=== PATIENT | female | born 1985 | race Caucasian/White ===

== ENCOUNTER → 2016-06-27 | Emergency (ER) | payer OTHER ==
[~2016-06-27] MED LIST: LIDOCAINE VISCOUS 2% ORAL/TOP 100 ML BOTTLE MM ONE; MAG HYDROX/AL HYDROX/SIMETH 30 ML UNIT-DOSE CUP ONE; MAG HYDROX/AL HYDROX/SIMETH 30 ML UNIT-DOSE CUP PO ONE
[2016-06-27 18:42] VITALS: BP 133/89; PULSE 98; TEMP 97.7; BMI 33.6
--- NOTE | 2016-06-27 19:25 | PDOC ---
History of Present Illness - General Chief Complaint: Pain, Acute Stated Complaint: ABD PAIN/BACK PAIN Time Seen by Provider: 06/27/16 18:58 History Source: Patient Exam Limitations: No Limitations - History of Present Illness Travel History: No Timing/Duration: reports: intermittent Quality: reports: mild Abdominal Pain Onset Location: reports: RUQ, epigastric Pain Radiation: reports: no radiation Alleviating Factors: improves with: Rest Past History - Travel Traveled outside of the country in the last 30 days: No Close contact w/someone who was outside of country & ill: No - Past Medical History Allergies/Adverse Reactions: Allergies Allergy/AdvReac Type Severity Reaction Status Date / Time No Known Allergies Allergy Verified 06/27/16 18:39 Home Medications: Ambulatory Orders NK [No Known Home Medication] 06/27/16 Other medical history: DENIES. - Psycho/Social/Smoking Cessation Hx Anxiety: No Suicidal Ideation: No Smoking Status: No Smoking History: Never smoked Have you smoked in the past 12 months: No Number of Cigarettes Smoked Daily: 0 Hx Alcohol Use: No Substance Use Type: None Abd/GI Specific PMHX - Complaint Specific PMHX Colitis: No Diverticulitis: No Gall Bladder Disease: No GERD: No Review of Systems - Review of Systems Able to Perform ROS?: Yes Comments:: 06/27/16 19:43 CONSTITUTIONAL: Absent: fever, chills, diaphoresis, generalized weakness, malaise, loss of appetite HEENT: Absent: rhinorrhea, nasal congestion, throat pain, throat swelling, difficulty swallowing, mouth swelling, ear pain, eye pain, visual Changes CARDIOVASCULAR: Absent: chest pain, loss of consciousness, palpitations, irregular heart rate, peripheral edema RESPIRATORY: Absent: cough, shortness of breath, dyspnea with exertion, orthopnea, wheezing, stridor, hemoptysis GASTROINTESTINAL: +RUQ pain/epigastric Absent: abdominal distension, nausea, vomiting, diarrhea, constipation, melena, hematochezia GENITOURINARY: Absent: dysuria, frequency, urgency, hesitancy, hematuria, flank pain, genital pain MUSCULOSKELETAL: Absent: myalgia, arthralgia, joint swelling SKIN: Absent: rash, itching, pallor HEMATOLOGIC/IMMUNOLOGIC: Absent: easy bleeding, easy bruising, lymphadenopathy, frequent infections ENDOCRINE: Absent: unexplained weight gain, unexplained weight loss, heat intolerance, cold intolerance NEUROLOGIC: Absent: headache, focal weakness or paresthesias, dizziness, unsteady gait, seizure, mental status changes, bladder or bowel incontinence PSYCHIATRIC: Absent: anxiety, depression, suicidal or homicidal ideation, hallucinations. Is the patient limited Cook Islander proficient: No *Physical Exam - Vital Signs Last Vital Signs Temp Pulse Resp BP Pulse Ox 97.7 F 98 H 19 133/89 100 06/27/16 18:40 06/27/16 18:40 06/27/16 18:40 06/27/16 18:40 06/27/16 18:40 - Physical Exam Comments: 06/27/16 19:43 GENERAL: Well developed, well nourished. Awake and alert. No acute distress. HEENT: Normocephalic, atraumatic. PERRLA, EOMI. No conjunctival pallor. Sclera are non- icteric. Moist mucous membranes. Oropharynx is clear. NECK: Supple. Full ROM. No JVD. Carotid pulses 2+ and symmetric, without bruits. No thyromegaly. No lymphadenopathy. CARDIOVASCULAR: Regular rate and rhythm. No murmurs, rubs, or gallops. Distal pulses are 2+ and symmetric. PULMONARY: No evidence of respiratory distress. Lungs clear to auscultation bilaterally. No wheezing, rales or rhonchi. ABDOMINAL: +RUQ/epigastric pain Soft. Non-distended. No rebound or guarding. No organomegaly. Normoactive bowel sounds. MUSCULOSKELETAL Normal range of motion at all joints. No bony deformities or tenderness. No CVA tenderness. EXTREMITIES: No cyanosis. No clubbing. No edema. No calf tenderness. SKIN: Warm and dry. Normal capillary refill. No rashes. No jaundice. NEUROLOGICAL: Alert, awake, appropriate. Cranial nerves 2-12 intact. No deficits to light touch and temperature in face, upper extremities and lower extremities. No motor deficits in the in face, upper extremities and lower extremities. Normoreflexic in the upper and lower extremities. Normal speech. Toes are down- going bilaterally. Gait is normal without ataxia. PSYCHIATRIC: Cooperative. Good eye contact. Appropriate mood and affect. ED Treatment Course - LABORATORY CBC & Chemistry Diagram: 06/27/16 19:35 06/27/16 21:22 Progress Note - Progress Note Progress Note: 31-year-old female presents to the emergency department with her fianc complaining of right upper quadrant greater than epigastric pain since yesterday. Pain is described as 5/10 dull nonradiating intermittent discomfort. Pain is associated with some nausea but no vomiting. Pain is exacerbated on touch and alleviated at rest. Patient denies any fever/chills, chest pain, shortness of breath, urinary symptoms: Frequency/urgency/hesitancy, hematuria. No history of similar symptoms. EKG NSR at 90; no st elevation 2238hrs; Pain free *DC/Admit/Observation/Transfer Diagnosis at time of Disposition: Abdominal pain Qualifiers: Abdominal location: epigastric Qualified Code(s): R10.13 - Epigastric pain - Discharge Dispostion Disposition: HOME Condition at time of disposition: Fair
[2016-06-27 20:06] LABS: BASOPHIL 0.5 % (0-2.0); EOSINOPHIL 1.7 % (0-4.5); MCHC 33.9 g/dl (32.0-36.0); MEAN CELL VOLUME 85.4 fl (80-96); MEAN PLT VOLUME 10.3 fl (7.5-11.1); NEUTROPHILS 56.8 % (42.8-82.8); PLATELET COUNT 283 K/MM3 (134-434); RDW 13.7 % (11.6-15.6); URINE APPEARANCE CLEAR; URINE BILIRUBIN NEGATIVE (NEGATIVE); URINE BLOOD NEGATIVE (NEGATIVE); URINE COLOR LTYELLOW; URINE GLUCOSE (UA) NEGATIVE (NEGATIVE); URINE KETONE NEGATIVE (NEGATIVE); URINE LEUK ESTERASE NEGATIVE (NEGATIVE); URINE NITRITE NEGATIVE (NEGATIVE); URINE PROTEIN NEGATIVE (NEGATIVE); URINE UROBILINOGEN NEGATIVE E.U./dl (0.2-1.0)
[2016-06-27 22:20] LABS: ALBUMIN 3.6 g/dl (3.4-5.0); ALK PHOS 74 U/L (45-117); ANION GAP 10 (8-16); BILIRUBIN,TOTAL 0.4 mg/dL (0.2-1.0); CO2 25 mmol/L (21-32); CREATININE 0.7 mg/dL (0.55-1.02); GLUCOSE,RANDOM 89 mg/dL (74-106); SGOT/AST 16 U/L (15-37); SGPT/ALT 23 U/L (12-78); TOT PROT 7.1 g/dl (6.4-8.2)
[2016-06-27 22:57] LABS: AMYLASE 42 U/L (25-115)
--- NOTE | 2016-06-28 17:48 | EKG ---
Test Reason : Blood Pressure : / mmHG Vent. Rate : 090 BPM Atrial Rate : 090 BPM P-R Int : 160 ms QRS Dur : 078 ms QT Int : 358 ms P-R-T Axes : 017 017 016 degrees QTc Int : 437 ms NORMAL SINUS RHYTHM NORMAL ECG NO PREVIOUS ECGS AVAILABLE Confirmed by KRYSTA LIVINGSTON MD ([id number]) on 06/28/2016 5:47:40 PM Referred By: Confirmed By:KRYSTA LIVINGSTON MD
== END | disposition home or self-care (01) ==
LOC: JER 18:26
DX: R10.13 Epigastric pain (principal)
CPT/HCPCS: 36415; 76705-TC; 80053; 81003; 82150; 83690; 84703; 85025; 93005; 93010; 99283-25

== ENCOUNTER 2016-12-01 07:04 | Emergency (ER) | payer OTHER ==
[2016-12-01 07:13] VITALS: BMI 35.5
--- NOTE | 2016-12-01 07:33 | PDOC ---
History of Present Illness - General History Source: Patient Exam Limitations: No Limitations - History of Present Illness Initial Comments: CHIEF COMPLAINT: 31 y/o afebrile female, , approximately 19 weeks female with LMP of 07/21/16 c/o vaginal bleeding this morning. HISTORY OF PRESENT ILLNESS: The patient states yesterday she had back cramping and this morning had pinkish vaginal bleeding with the passage of 1 clot. She states she still has some light bleeding now that is pink and intermittent lower abdominal pain. She denies f/c, n/v/d, CP, SOB, hematuria, dysuria. She is on vitamins, denies smoking. OB is Dr. Contreras Vital signs on arrival are within normal limits. REVIEW OF SYSTEMS: GENERAL/CONSTITUTIONAL: No fever/chills. No weakness. No weight change. HEAD, EYES, EARS, NOSE AND THROAT: No change in vision. No ear pain or discharge. No sore throat. CARDIOVASCULAR: No chest pain or shortness of breath. RESPIRATORY: No cough, wheezing, or hemoptysis. GASTROINTESTINAL: +lower abdominal pain and vaginal bleeding. No nausea, vomiting, diarrhea. GENITOURINARY: No dysuria, frequency, or change in urination. MUSCULOSKELETAL: No joint or muscle swelling or pain. No neck or back pain. SKIN: No rash or easy bruising. NEUROLOGIC: No headache, vertigo, loss of consciousness, or loss of sensation. PHYSICAL EXAM: GENERAL: The patient is awake, alert, and fully oriented, in no acute distress. She is well appearing, ambulatory, in NAD or obvious discomfort. HEAD: Normal with no signs of trauma. ENT: Pupils equal, round and reactive to light, extraocular movements intact, sclera anicteric, conjunctiva clear. Neck supple. LUNGS: Clear to auscultation bilaterally. Normal excursion. No respiratory distress or use of accessory muscles. CV: RRR, S1/S2, no MRG. Cap refill < 2 sec. ABDOMEN: Soft, non-distended, non-tender even to deep palpation, no hepatomegaly or splenomegaly, no masses. BACK: No back pain with palpation. No CVA TTP b/l. VAGINAL: DEFERRED EXTREMITIES: Normal range of motion, no edema. NEUROLOGICAL: Normal speech, normal gait. CN II-XII grossly intact. PSYCH: Normal mood, normal affect. SKIN: Warm, dry, normal turgor, no rashes or lesions noted. <Radha Navarrete - Last Filed: 12/01/16 10:58> <Aide Vivas - Last Filed: 12/05/16 08:39> - General Chief Complaint: Vaginal Bleeding Stated Complaint: 19 wks preg VAGINAL BLEEDING Time Seen by Provider: 12/01/16 07:19 Past History - Past Medical History Other medical history: none - Psycho/Social/Smoking Cessation Hx Anxiety: No Suicidal Ideation: No Smoking Status: No Smoking History: Never smoked Have you smoked in the past 12 months: No Number of Cigarettes Smoked Daily: 0 Information on smoking cessation initiated: No Hx Alcohol Use: No Drug/Substance Use Hx: No Substance Use Type: None <Radha Navarrete - Last Filed: 12/01/16 10:58> <Aide Vivas - Last Filed: 12/05/16 08:39> - Past Medical History Allergies/Adverse Reactions: Allergies Allergy/AdvReac Type Severity Reaction Status Date / Time No Known Allergies Allergy Verified 12/01/16 07:10 Home Medications: Ambulatory Orders NK [No Known Home Medication] 06/27/16 Abd/GI Specific PMHX - Complaint Specific PMHX Colitis: No Diverticulitis: No Gall Bladder Disease: No GERD: No <Radha Navarrete - Last Filed: 12/01/16 10:58> *Physical Exam - Vital Signs Last Vital Signs Temp Pulse Resp BP Pulse Ox 98.1 F 93 H 18 129/89 100 12/01/16 07:10 12/01/16 07:10 12/01/16 07:10 12/01/16 07:10 12/01/16 07:10 <Radha Navarrete - Last Filed: 12/01/16 10:58> - Vital Signs Last Vital Signs Temp Pulse Resp BP Pulse Ox 98.0 F 85 18 132/87 100 12/01/16 11:15 12/01/16 11:15 12/01/16 07:10 12/01/16 11:15 12/01/16 11:15 <Aide Vivas - Last Filed: 12/05/16 08:39> ED Treatment Course - LABORATORY CBC & Chemistry Diagram: 12/01/16 08:05 12/01/16 08:05 <Radha Navarrete - Last Filed: 12/01/16 10:58> - LABORATORY CBC & Chemistry Diagram: 12/01/16 08:05 12/01/16 08:05 - ADDITIONAL ORDERS Additional order review: 12/01/16 08:05 Urine Culture - Final Urine - Urine Clean Catch NO GROWTH OBTAINED 12/01/16 08:05 RBC 4.04 MCV 86.9 MCHC 34.7 RDW 14.5 MPV 9.2 Neutrophils % 63.0 Lymphocytes % 25.5 Monocytes % 9.8 Eosinophils % 1.1 Basophils % 0.6 - RADIOLOGY Radiology Studies Ordered: Category Date Time Status TRANSVAGINAL US PREG [US] Routine Ultrasound 12/01/16 Completed <Aide Vivas - Last Filed: 12/05/16 08:39> Medical Decision Making - Medical Decision Making A/P: 31 y/o afebrile female, , approximately 19 week female c/o vaginal bleeding this morning. The plan is as follows: 1. Labs 2. UA/culture 3. Ultrasound A bedside doppler was performed and a HR of 142BPM was obtained. Labs unremarkable Blood type - B+ Ultrasound IMPRESSION: Singe live intrauterine gestation of 19 weeks 6 days gestational age with low lying posterior placenta. Spoke with ORLIN Benitez at Dr. Contreras's office, as Dr. Contreras is away. She suggested that the patient be put on pelvic rest (No lifting, sexual activity or exercise) until she can follow up in their office. Her next scheduled appointment is for 01/10 and she suggests she calls the office to make a sooner appointment. The patient was made aware of all of her results. She was instructed on pelvic rest and told to remain on pelvic rest until she is seen by Dr. Contreras. I suggested she call the office today and schedule an appointment for within the next 2 weeks. Instructed the patient to return to the ER with any worsening or concerning symptoms. The patient verbalizes understanding of all instructions, has no further questions and is awaiting discharge. <Radha Navarrete - Last Filed: 12/01/16 10:58> *DC/Admit/Observation/Transfer <Radha Navarrete - Last Filed: 12/01/16 10:58> - Attestations Physician Attestion: I reviewed the case with the mid-level practitioner and agree with the mid- level practitioner's assessment, diagnosis and disposition. <Aide Vivas - Last Filed: 12/05/16 08:39> Diagnosis at time of Disposition: Vaginal bleeding before 22 weeks gestation - Discharge Dispostion Disposition: HOME Condition at time of disposition: Good - Patient Instructions Printed Discharge Instructions: DI for Vaginal Bleeding During Additional Instructions: Discharge Instructions: -Your ultrasound shows a low lying placenta, which can cause bleeding -Your OB was called and suggested pelvic rest - No lifting, exercise or sexual activity until she clears you -Please call your OB tomorrow to schedule a follow up appointment as soon as possible -Return to the ER with any worsening or concerning symptoms. - Post Discharge Activity Work/School Note: Back to Work
[2016-12-01 08:21] LABS: BASOPHIL 0.6 % (0-2.0); EOSINOPHIL 1.1 % (0-4.5); MCH 30.2 pg (25.7-33.7); MCHC 34.7 g/dl (32.0-36.0); MEAN CELL VOLUME 86.9 fl (80-96); MEAN PLT VOLUME 9.2 fl (7.5-11.1); PLATELET COUNT 218 K/MM3 (134-434); RDW 14.5 % (11.6-15.6); WHITE BLOOD COUNT 5.9 K/mm3 (4.0-10.0)
[2016-12-01 08:37] LABS: ALK PHOS 57 U/L (45-117); ANION GAP 9 (8-16); BILIRUBIN,TOTAL 0.4 mg/dL (0.2-1.0); CALCIUM 9.1 mg/dL (8.5-10.1); CO2 26 mmol/L (21-32); CREATININE 0.6 mg/dL (0.55-1.02); GLUCOSE,RANDOM 109 mg/dL (74-106); SGOT/AST 33 U/L (15-37); SGPT/ALT 47 U/L (12-78); TOT PROT 6.7 g/dl (6.4-8.2)
[2016-12-01 09:01] LABS: URINE APPEARANCE CLEAR; URINE BILIRUBIN NEGATIVE (NEGATIVE); URINE BLOOD NEGATIVE (NEGATIVE); URINE COLOR LTYELLOW; URINE GLUCOSE (UA) NEGATIVE (NEGATIVE); URINE KETONE NEGATIVE (NEGATIVE); URINE LEUK ESTERASE NEGATIVE (NEGATIVE); URINE NITRITE NEGATIVE (NEGATIVE); URINE PROTEIN NEGATIVE (NEGATIVE); URINE UROBILINOGEN NEGATIVE E.U./dl (0.2-1.0)
[2016-12-01 11:29] VITALS: BP 132/87; PULSE 85; TEMP 98
== END 2016-12-01 11:15 | disposition home or self-care (01) ==
LOC: JER 07:04
DX: O26.892 Other specified pregnancy related conditions, second trimester (principal); O20.8 Other hemorrhage in early pregnancy; O44.52 Low lying placenta with hemorrhage, second trimester; Z3A.19 19 weeks gestation of pregnancy
CPT/HCPCS: 36415; 76815-TC; 76817-TC; 80053; 81003; 85025; 86850; 86900; 86901; 87086; 99282-25

== ENCOUNTER 2017-04-08 17:00 | Inpatient (IN) | payer OTHER ==
[2017-04-08 17:38] VITALS: BMI 36.1
[2017-04-08] MEDS ORDERED: BUTORPHANOL TARTRATE 1 MG/ML VIAL IVPB ONE (17:56)
[2017-04-08] MEDS ORDERED: PROMETHAZINE HCL 25 MG/1 ML VIAL IVPUSH ONE (17:56)
[2017-04-08] MEDS ORDERED: TUBERCULIN PPD 5 TU/0.1ML SYRINGE (IN PATIENT USE ONLY) ID ONE (17:59)
[2017-04-08] MEDS ORDERED: ELECTROLYTE-148 SOLN 1,000 ML IV SCH ×2 (18:00→18:15)
[2017-04-08] MEDS ORDERED: OXYTOCIN 15 UNITS/ LR 250 ML 15 UNIT/250 ML INFUS.BAG IVPB SCH (18:15)
--- NOTE | 2017-04-08 18:52 | HP ---
Past Medical History - Admission Chief Complaint: here for IOL History of Present Illness: 32 y/o with SIUP at 38 weeks here for IOL 2/2 gHTN and GDMA1. complicated by low lying placenta in 1st and 2nd trimesters, now resolved. Pt also with gestational HTN and A1GDM. Followed by MFM. No other complications. Feeling well today, occasional contractions, +FM no VB/LOF. Denies RUQ pain/DEL CID/spots or changes in vision. History Source: Patient, Medical Record Limitations to Obtaining History: No Limitations - Past Medical History Cardiovascular: Yes: HTN (gestational) Pulmonary: No: Asthma, COPD Gastrointestinal: No: GERD, Irritable Bowel Disease Hepatobiliary: No: Hepatitis B, Hepatitis C Renal/: No: Renal Inusuff, UTI Reproductive: No: Ectopic , Fibroids, PID, Polycystic Ovary Syndrome ...: 4 ...Para: 2 ...Term: 2 ...: 0 ...Spon : 0 ...Induced : 1 ...Multiple Gestation: 0 ...LMP: 07/16/16 ... Weeks Gestation by Dates: 38.0 ...EDC by Dates: 04/22/17 ...EDC by Sono: 04/22/17 Infectious Disease: No: HIV, MRSA, STD's Psych: No: Bipolar, Depression Endocrine: Yes: Diabetes Mellitus (gestational - diet controlled). No: Hypothyroidism - Past Surgical History Past Surgical History: Yes: None Hx Myomectomy: No Hx Transabdominal Cerclage: No - Smoking History Smoking history: Never smoked Have you smoked in the past 12 months: No Aproximately how many cigarettes per day: 0 - Alcohol/Substance Use Hx Alcohol Use: No History of Substance Use: reports: None - Social History Usual Living Arrangement: Yes: With Spouse History of Recent Travel: No Home Medications - Allergies Allergies/Adverse Reactions: Allergies Allergy/AdvReac Type Severity Reaction Status Date / Time No Known Allergies Allergy Verified 03/10/17 11:57 - Home Medications Home Medications: Ambulatory Orders Pnv95/Ferrous Fumarate/FA [ Vitamin Tablet] 1 each PO DAILY 03/02/17 Review of Systems - Review of Systems Constitutional: reports: No Symptoms Eyes: reports: No Symptoms HENT: reports: No Symptoms Neck: reports: No Symptoms Cardiovascular: reports: No Symptoms Respiratory: reports: No Symptoms Gastrointestinal: reports: No Symptoms Genitourinary: reports: No Symptoms Breasts: reports: No Symptoms Reported Musculoskeletal: reports: No Symptoms Integumentary: reports: No Symptoms Neurological: reports: No Symptoms Endocrine: reports: No Symptoms Hematology/Lymphatic: reports: No Symptoms Psychiatric: reports: No Symptoms Physical Exam - Maternity Vital Signs: Vital Signs Temperature 98.2 F 04/08/17 17:00 Pulse Rate 106 H 04/08/17 17:00 Respiratory Rate 20 04/08/17 17:00 Blood Pressure 124/82 04/08/17 17:00 O2 Sat by Pulse Oximetry (%) Constitutional: Yes: Well Nourished, No Distress, Calm Eyes: Yes: WNL, Conjunctiva Clear, EOM Intact HENT: Yes: Atraumatic, Normocephalic Neck: Yes: Supple, Trachea Midline Cardiovascular: Yes: Regular Rate and Rhythm Lungs: Clear to auscultation - Abdominal Exam/OB Fundal Height: 38 Number of Fetuses: Single Presentation: Vertex Contractions: Yes Regularity: Irregular Intensity: Mild Monitor Mode: External Heart Rate (range): 145 Category: I Accelerations: Uniform Decelerations: None - Vaginal Exam/OB Vaginal Bleediing: No Dilatation (cm): 2.5 Effacement (%): 50 Amniotic Membrane Status: Intact Presentation: Vertex/Position Station: -2 - Physical Exam Psychiatric: Yes: Alert, Oriented Hemorrhage Risk Assessment - Risk Factors Medium Risk Factors: Yes: None High Risk Factors: Yes: None Risk Score: 1 Risk Level: Medium Risk Problem List - Problems (1) Gestational diabetes mellitus (GDM) affecting third Code(s): O24.419 - GESTATIONAL DIABETES MELLITUS IN , UNSP CONTROL; O09.40 - SUPERVISION OF W GRAND MULTIPARITY, UNSP TRIMESTER (2) Gestational hypertension affecting third Code(s): O13.9 - GESTATIONAL HTN W/O SIGNIFICANT PROTEINURIA, UNSP TRIMESTER; O09.40 - SUPERVISION OF W GRAND MULTIPARITY, UNSP TRIMESTER Assessment/Plan 32 y/o with SIUP at 38 weeks, IOL for gHTN and GDMA1 - AFVSS - FHTs cat 1 - gHTN , BPs normal today and pt currently asymptomatic. HELLP labs pending. Continue to monitor. - GDMA1, admission BG pending, no need for BGMs in labor - GBS negative
[2017-04-08 19:49] LABS: URINE APPEARANCE SLCLOUDY; URINE BILIRUBIN NEGATIVE (NEGATIVE); URINE BLOOD NEGATIVE (NEGATIVE); URINE COLOR YELLOW; URINE GLUCOSE (UA) NEGATIVE (NEGATIVE); URINE KETONE NEGATIVE (NEGATIVE); URINE NITRITE NEGATIVE (NEGATIVE); URINE PROTEIN NEGATIVE (NEGATIVE); URINE UROBILINOGEN NEGATIVE mg/dL (0.2-1.0)
[2017-04-08 19:53] LABS: BASOPHIL 0.4 % (0-2.0); EOSINOPHIL 0.6 % (0-4.5); MCH 30.3 pg (25.7-33.7); MCHC 34.3 g/dl (32.0-36.0); MEAN CELL VOLUME 88.3 fl (80-96); MEAN PLT VOLUME 10.6 fl (7.5-11.1); NEUTROPHILS 59.5 % (42.8-82.8); PLATELET COUNT 225 K/MM3 (134-434); RDW 14.6 % (11.6-15.6); WHITE BLOOD COUNT 5.2 K/mm3 (4.0-10.0)
[2017-04-08 20:02] LABS: INR 0.94 (0.82-1.09); PROTHROMBIN TIME (PATIENT) 10.6 SEC (9.98-11.88)
[2017-04-08 20:05] LABS: ACTIVATED PTT 25.3 SECONDS (26.9-34.4)
[2017-04-08 20:22] LABS: ANION GAP 10 (8-16); CALCIUM 9.1 mg/dL (8.5-10.1); CO2 23 mmol/L (21-32); CREATININE 0.6 mg/dL (0.55-1.02); GLUCOSE,RANDOM 77 mg/dL (74-106); SGOT/AST 12 U/L (15-37); SGPT/ALT 13 U/L (12-78); URIC ACID 4.6 mg/dL (2.6-7.2)
[2017-04-08 21:13] LABS: URINE LEUK ESTERASE Negative (NEGATIVE)
--- NOTE | 2017-04-09 03:59 | PN ---
Ante-Partal Exam - Subjective Subjective: Pt tolerating contractions. Vital Signs: Vital Signs Temperature 97.8 F 04/09/17 02:00 Pulse Rate 86 04/09/17 03:00 Respiratory Rate 20 04/09/17 03:00 Blood Pressure 130/85 04/09/17 03:00 O2 Sat by Pulse Oximetry (%) Bleeding: No Headache: No Visual changes: No Right upper quadrant pain: No Pain (scale 1-10): 4 - Contractions Contractions: Yes Regularity: Regular Intensity: Mod/Strong Monitor Mode: External - Exam during Labor Heart Rate: 145 Variability: Moderate Category: I Monitor Accelerations: Present Monitor Decelerations: None Exam: Vaginal Dilatation (cm): 4.5 Effacement (%): 70 Amniotic Membrane Status: Ruptured (AROM for clear fluid at this examination) Amniotic Fluid: Clear Presentation: Vertex Station: -2 - Intrapartum Hemorrhage Risk Medium Risk Factors: None High Risk Factors: None Risk Score: 0 Risk Level: Low Risk - Assessment/Plan Assessment/Plan: 32 y/o with SIUP at 38 weeks, IOL for gHTN, also with GDMA1 - AFVSS - FHTS cat 1 - IOL, pitocin at 3, AROM at this exam, continue active management - GBS negative
--- NOTE | 2017-04-09 07:49 | PN ---
Ante-Partal Exam - Subjective Subjective: Pt feeling pain and urge to push. Vital Signs: Vital Signs Temperature 97.9 F 04/09/17 06:00 Pulse Rate 76 04/09/17 06:00 Respiratory Rate 20 04/09/17 06:00 Blood Pressure 128/84 04/09/17 06:00 O2 Sat by Pulse Oximetry (%) Bleeding: No Headache: No Visual changes: No Right upper quadrant pain: No - Contractions Contractions: Yes Regularity: Regular Intensity: Moderate Monitor Mode: External - Exam during Labor Heart Rate: 140 Variability: Moderate Category: II Monitor Accelerations: Absent Monitor Decelerations: Variable Dilatation (cm): 9.5 Effacement (%): 90 Amniotic Membrane Status: Ruptured Presentation: Vertex Station: 0 - Assessment/Plan Assessment/Plan: 32 y/o with SIUP at 38 weeks, IOL for GHTN - FHTS cat 2 but making active progress, pitocin held at this time - to begin pushing in approx 20 mins - GBs negative - anticipate
--- NOTE | 2017-04-09 09:06 | PN ---
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
[2017-04-09] MEDS ORDERED: WITCH HAZEL 50% (TUCKS) 40 PAD/JAR PAD TP PRN (10:16)
[2017-04-09] MEDS ORDERED: BISACODYL 10 MG SUPP.RECT RC PRN (10:16)
[2017-04-09] MEDS ORDERED: BENZOCAINE 20% 57 GM BOTTLE TP PRN (10:16)
[2017-04-09] MEDS ORDERED: METHYLERGONOVINE MALEATE 0.2 MG/1 ML AMP IM PRN (10:16)
[2017-04-09] MEDS ORDERED: BENZOCAINE 28 GM HEMORRHOIDAL OINTMENT TP PRN (10:16)
[2017-04-09] MEDS ORDERED: OXYTOCIN 20 UNITS in 0.9% NS 20 UNIT/1,000 ML INFUS.BAG IV SCH (10:30)
[2017-04-09] MEDS: FERROUS SO4 325 MG TABLET (FP) PO SCH ×2 (12:43→16:59)
[2017-04-09] MEDS: ACETAMINOPHEN 325 MG TABLET (FP) PO PRN (18:10)
[2017-04-09] MEDS: IBUPROFEN 600 MG TABLET (FP) PO PRN (18:11)
[2017-04-10 07:54] LABS: BASOPHIL 0.3 % (0-2.0); EOSINOPHIL 1.1 % (0-4.5); MCH 30.4 pg (25.7-33.7); MCHC 34.2 g/dl (32.0-36.0); MEAN CELL VOLUME 88.8 fl (80-96); MEAN PLT VOLUME 10.2 fl (7.5-11.1); NEUTROPHILS 63.5 % (42.8-82.8); PLATELET COUNT 161 K/MM3 (134-434); RDW 14.9 % (11.6-15.6); WHITE BLOOD COUNT 9.7 K/mm3 (4.0-10.0)
[2017-04-10] MEDS: FERROUS SO4 325 MG TABLET (FP) PO SCH ×3 (08:35→16:59)
--- NOTE | 2017-04-10 09:01 | PN ---
Post Progress Note - Subjective Subjective: Pt seen/evaluated and doing well. Pain controlled, tolerating diet, ambulating , voiding, passing flatus. Denies CP/SOB/F/C/DEL CID. Type of Delivery: Vital Signs: Vital Signs Temperature 97.8 F 04/10/17 08:15 Pulse Rate 83 04/10/17 08:15 Respiratory Rate 20 04/10/17 08:15 Blood Pressure 109/67 04/10/17 08:15 O2 Sat by Pulse Oximetry (%) 99 04/09/17 10:00 Uterus: Yes: Fundus Firm, Fundus below umbilicus Abdomen/GI: Yes: Abdomen soft, Passing flatus. No: Abdominal Distention, Tender Lochia: Yes: Rubra Lochia, amount: Small Extremities: Yes: Calves non-tender Perineum: Yes: Laceration Activity: Ambulating - Labs Labs: CBC WBC 9.7 K/mm3 (4.0-10.0) D 04/10/17 06:30 RBC 3.33 M/mm3 (3.60-5.2) L 04/10/17 06:30 Hgb 10.1 GM/dL (10.7-15.3) L D 04/10/17 06:30 Hct 29.6 % (32.4-45.2) L D 04/10/17 06:30 MCV 88.8 fl (80-96) 04/10/17 06:30 MCH 30.4 pg (25.7-33.7) 04/10/17 06:30 MCHC 34.2 g/dl (32.0-36.0) 04/10/17 06:30 RDW 14.9 % (11.6-15.6) 04/10/17 06:30 Plt Count 161 K/MM3 (134-434) D 04/10/17 06:30 MPV 10.2 fl (7.5-11.1) 04/10/17 06:30 Neutrophils % 63.5 % (42.8-82.8) 04/10/17 06:30 Lymphocytes % 26.5 % (8-40) 04/10/17 06:30 Monocytes % 8.6 % (3.8-10.2) 04/10/17 06:30 Eosinophils % 1.1 % (0-4.5) D 04/10/17 06:30 Basophils % 0.3 % (0-2.0) 04/10/17 06:30 Retic Count 1.54 % (0.5-1.5) H 04/08/17 18:30 Haptoglobin 73 mg/dL (34-200) 04/08/17 18:30 Problem List - Problems (1) Gestational diabetes mellitus (GDM) affecting third Code(s): O24.419 - GESTATIONAL DIABETES MELLITUS IN , UNSP CONTROL; O09.40 - SUPERVISION OF W GRAND MULTIPARITY, UNSP TRIMESTER (2) Gestational hypertension affecting third Code(s): O13.9 - GESTATIONAL HTN W/O SIGNIFICANT PROTEINURIA, UNSP TRIMESTER; O09.40 - SUPERVISION OF W GRAND MULTIPARITY, UNSP TRIMESTER (3) Vaginal delivery Code(s): O80 - ENCOUNTER FOR FULL-TERM UNCOMPLICATED DELIVERY Assessment/Plan 32 PPD#1 s/p normal - AFVSS - Hgb 10.1 post delivery - regular diet, PO pain meds - routine post care
[2017-04-10] MEDS: ACETAMINOPHEN 325 MG TABLET (FP) PO PRN (09:41)
[2017-04-10] MEDS: PRENATAL VITAMINS W/ FOLIC ACID TABLET (FP) PO SCH (09:41)
[2017-04-10] MEDS: IBUPROFEN 600 MG TABLET (FP) PO PRN (09:42)
[2017-04-10] MEDS ORDERED: SENNOSIDES/DOCUSATE COMBO (SENNA PLUS) TABLET (UD) PO PRN (22:00)
[2017-04-11] MEDS: ACETAMINOPHEN 325 MG TABLET (FP) PO PRN ×2 (01:47→08:02)
[2017-04-11] MEDS: IBUPROFEN 600 MG TABLET (FP) PO PRN ×2 (01:48→08:03)
[2017-04-11] MEDS: FERROUS SO4 325 MG TABLET (FP) PO SCH (08:02)
[2017-04-11 08:45] VITALS: BP 125/84; PULSE 84; TEMP 98.6
[2017-04-11] MEDS: PRENATAL VITAMINS W/ FOLIC ACID TABLET (FP) PO SCH (09:27)
--- NOTE | 2017-04-11 10:42 | DS ---
Physical Exam-[facility] Vital Signs: Vital Signs Temperature 98.6 F 04/11/17 08:43 Pulse Rate 84 04/11/17 08:43 Respiratory Rate 20 04/11/17 08:43 Blood Pressure 125/84 04/11/17 08:43 O2 Sat by Pulse Oximetry (%) 99 04/09/17 10:00 Constitutional: Yes: Well Nourished Eyes: Yes: Conjunctiva Clear HENT: Yes: Atraumatic Neck: Yes: Supple Cardiovascular: Yes: Regular Rate and Rhythm Respiratory: Yes: Regular, CTA Bilaterally Gastrointestinal: Yes: Normal Bowel Sounds External Genitalia: Yes: Normal Vaginal Exam: Yes: Normal ....Post : Yes: Uterus firm, Moderate lochia serosa Breast(s): Yes: WNL Neurological: Yes: Alert, Oriented ...Motor Strength: WNL Psychiatric: Yes: Alert, Oriented Labs: CBC, BMP 04/10/17 06:30 04/08/17 18:30 Delivery - Delivery Vaginal Delivery: No Problems Type of Anesthesia: Spinal Episiotomy/Laceration: 2nd degree EBL (cc): 300 Delivery, Single - Stages of Labor Date 1st Stage Initiatied: 04/09/17 Time 1st Stage Initiated: 00:00 Date 2nd Stage Initiated: 04/09/17 Time 2nd Stage Initiated: 08:35 Date of Delivery: 04/09/17 Time of Delivery: 08:52 Time Placenta Delivered: 09:00 Placenta: Yes: Spontaneous - 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: No Gender: Male Weight: 7 lb 10 oz Position: OA Total Hours ROM (Hrs/Mins): 5hrs - 1 Minute Total Score: 6 5 Minutes Total Score: 7 10 Minutes Total Score: 9 - Feeding Plan Initial Plan: Elected not to breastfeed exclusively throughout hospitalization Discharge Summary Reason For Visit: INDUCTION OF LABOR Current Active Problems Gestational diabetes mellitus (GDM) affecting third (Acute) Gestational hypertension affecting third (Acute) Vaginal delivery (Acute) Procedures: Principal: Normal vaginal delivery Hospital Course: Routine care Condition: Good - Instructions Diet, Activity, Other Instructions: return to office in 4-6 weeks for check. call for appointment. Referrals: Tanika Bustos DO [Staff Physician] - Disposition: HOME - Home Medications Comprehensive Discharge Medication List: Ambulatory Orders Pnv95/Ferrous Fumarate/FA [ Vitamin Tablet] 1 each PO DAILY 03/02/17
== END 2017-04-11 11:55 | disposition home or self-care (01) | DRG 775 ==
LOC: JLDR 17:00 → J3W 04-09 11:01
PROVIDERS: ADMIT Obstetrics & Gynecology; ATTEND Obstetrics & Gynecology
PROC: 0KQM0ZZ Repair Perineum Muscle, Open Approach (ICD-10-PCS; principal; 2017-04-09)
PROC: 10E0XZZ Delivery of Products of Conception, External Approach (ICD-10-PCS; 2017-04-09)
DX: O24.429 Gestational diabetes mellitus in childbirth, unspecified control (principal); O13.4 Gestational [pregnancy-induced] hypertension without significant proteinuria, complicating childbirth; O70.1 Second degree perineal laceration during delivery; Z3A.38 38 weeks gestation of pregnancy; Z37.0 Single live birth
CPT/HCPCS: 36415; 59409; 80048; 81003; 82977; 83010; 84450; 84460; 84550; 85025; 85044; 85610; 85730; 86593; 86850; 86900; 86901

== ENCOUNTER 2018-07-31 18:46 | Emergency (ER) | payer SELFPAY ==
[2018-07-31 19:01] VITALS: BP 132/80; PULSE 72; TEMP 98; BMI 31.1
[2018-07-31 19:36] LABS: URINE APPEARANCE CLEAR; URINE BILIRUBIN NEGATIVE (<2.0 mg/dL); URINE COLOR LTYELLOW; URINE GLUCOSE (UA) NEGATIVE (NEGATIVE); URINE KETONE NEGATIVE (NEGATIVE); URINE LEUK ESTERASE NEGATIVE (NEGATIVE); URINE NITRITE NEGATIVE (NEGATIVE); URINE PROTEIN NEGATIVE (NEGATIVE); URINE UROBILINOGEN NEGATIVE mg/dL (0.2-1.0)
--- NOTE | 2018-07-31 19:37 | PDOC ---
Attending Attestation - HPI HPI: 07/31/18 21:34 The patient is a 33 year old female, with a PMH of gestational diabetes (diet control) and HTN who presents to the emergency department complaining of right flank pain for the past 3 days. The patient she also endorse RLQ pain that radiates to the hip. She describes the pain as throbbing and tight that is exacerbated when standing or sitting for a period of time. The patient denies chest pain, shortness of breath, headache and dizziness. Denies fever, chills, nausea, vomit, diarrhea and constipation. Denies dysuria, frequency, urgency and hematuria. Allergies: NKDA Past surgical history: None reported Social history: None reported PCP:None reported Documentation prepared by Shweta Napier, acting as medical assistant supervisor for Tiffany Iglesias MD. - Physicial Exam PE: 07/31/18 21:37 GENERAL: Awake, alert, and fully oriented, in no acute distress HEAD: No signs of trauma LUNGS: Breath sounds equal, clear to auscultation bilaterally. No wheezes, and no crackles HEART: Regular rate and rhythm, normal S1 and S2, no murmurs, rubs or gallops ABDOMEN: Soft, nontender, normoactive bowel sounds. No guarding, no rebound. No masses NEUROLOGICAL: Cranial nerves II through XII grossly intact. Normal speech. SKIN: Warm, Dry, normal turgor, no rashes or lesions noted. Documentation prepared by Shweta Napier, acting as medical assistant supervisor for Tiffany Iglesias MD. <Shweta Napier - Last Filed: 07/31/18 21:34> - Resident Resident Name: Yung Hurtado - Medical Decision Making 07/31/18 23:42 Pt presents to the ED complaining of crampy R flank and abdominal pain. Patient is . Denies urinary complaints. Initial differential included ectopic, UTI, less likely renal stone. Pelvic US shows IUP. Will check labs and UA and reassess. <Tiffany Iglesias - Last Filed: 07/31/18 23:55>
[2018-07-31] MEDS ORDERED: SODIUM CHLORIDE 1,000 ML IV STA (19:41)
[2018-07-31] MEDS ORDERED: ONDANSETRON 4 MG/2 ML VIAL IVPUSH ONE (19:41)
[2018-07-31] MEDS ORDERED: morphine CARPU-JECT 4 MG/1 ML DISP.SYRIN IVPUSH ONE (19:41)
--- NOTE | 2018-07-31 19:49 | PDOC ---
History of Present Illness - General Chief Complaint: Pain, Acute Stated Complaint: RT PELVIC PAIN Time Seen by Provider: 07/31/18 19:34 History Source: Patient Exam Limitations: No Limitations - History of Present Illness Initial Comments: 07/31/18 19:42 Patient is a 33F with no significant medical history here today complaining of right sided flank pain that radiates to her RLQ and hip for the past 3 days. The pain is described as a squeezing. The patient states that she feels like she can't get comfortable and needs to move. LMP ~6 weeks ago, patient is not normally irregular. Denies vaginal pain, vaginal discharge. Denies dysuria. Last bowel movement yesterday. No prior abdominal surgeries. Reports nausea, denies fevers, chills, vomiting. Denies chest pain and vomiting. Past History - Past Medical History Allergies/Adverse Reactions: Allergies Allergy/AdvReac Type Severity Reaction Status Date / Time No Known Allergies Allergy Verified 07/31/18 18:59 Home Medications: Ambulatory Orders NK [No Known Home Medication] 07/31/18 Asthma: No Cancer: No Cardiac Disorders: No COPD: No Diabetes: Yes (GESTATIONAL - DIET CONTROL) HTN: Yes (CHRONIC - NO MEDS) Seizures: No Thyroid Disease: No - Reproductive History (#): 3 Para: 2 - Suicide/Smoking/Psychosocial Hx Smoking Status: No Smoking History: Never smoked Have you smoked in the past 12 months: No Number of Cigarettes Smoked Daily: 0 Hx Alcohol Use: No Drug/Substance Use Hx: No Substance Use Type: None Hx Substance Use Treatment: No Review of Systems - Review of Systems Able to Perform ROS?: Yes Comments:: 07/31/18 19:46 GENERAL/CONSTITUTIONAL: No fever or chills. No weakness. HEAD, EYES, EARS, NOSE AND THROAT: No change in vision. No sore throat. CARDIOVASCULAR: No chest pain or shortness of breath RESPIRATORY: No cough, wheezing, or hemoptysis. GASTROINTESTINAL: +nausea, no vomiting, diarrhea or constipation. GENITOURINARY: No dysuria, frequency, or change in urination. MUSCULOSKELETAL: No joint or muscle swelling or pain. No neck or back pain. SKIN: No rash NEUROLOGIC: No headache, vertigo, loss of consciousness, or change in strength/ sensation. HEMATOLOGIC/LYMPHATIC: No anemia, easy bleeding, or history of blood clots. ALLERGIC/IMMUNOLOGIC: No hives or skin allergy. *Physical Exam - Vital Signs Last Vital Signs Temp Pulse Resp BP Pulse Ox 98 F 72 20 132/80 100 07/31/18 19:00 07/31/18 19:00 07/31/18 19:00 07/31/18 19:00 07/31/18 19:00 - Physical Exam Comments: 07/31/18 19:46 GENERAL: Awake, alert, and fully oriented, in no acute distress HEAD: No signs of trauma, normocephalic, atraumatic EYES: PERRLA, EOMI, sclera anicteric, conjunctiva clear ENT: Auricles normal inspection, hearing grossly normal, nares patent, oropharynx clear without exudates. Moist mucosa NECK: Normal ROM, supple, no lymphadenopathy, JVD, or masses LUNGS: No distress, speaks full sentences, clear to auscultation bilaterally HEART: Regular rate and rhythm, normal S1 and S2, no murmurs, rubs or gallops, peripheral pulses normal and equal bilaterally. ABDOMEN: Soft, +RLQ pain, no guarding, sitting up and not holding still EXTREMITIES: Normal inspection, Normal range of motion, no edema. No clubbing or cyanosis. NEUROLOGICAL: Cranial nerves II through XII grossly intact. Normal speech, normal gait, no focal sensorimotor deficits SKIN: Warm, Dry, normal turgor, no rashes or lesions noted. Moderate Sedation - Procedure Monitoring Vital Signs: Procedure Monitoring Vital Signs Temperature 98 F 07/31/18 19:00 Pulse Rate 72 07/31/18 19:00 Respiratory Rate 20 07/31/18 19:00 Blood Pressure 132/80 07/31/18 19:00 O2 Sat by Pulse Oximetry (%) 100 07/31/18 19:00 ED Treatment Course - LABORATORY CBC & Chemistry Diagram: 07/31/18 20:08 07/31/18 20:08 - ADDITIONAL ORDERS Additional order review: Laboratory Results 07/31/18 19:01 Urine Color Ltyellow Urine Appearance Clear Urine pH 6.0 Ur Specific [place] 1.020 Urine Protein Negative Urine Glucose (UA) Negative Urine Ketones Negative Urine Blood Negative Urine Nitrite Negative Urine Bilirubin Negative Urine Urobilinogen Negative Ur Leukocyte Esterase Negative Medical Decision Making - Medical Decision Making 07/31/18 19:47 Patient is 33F with no significant medical history here today with right flank pain and rlq abdominal pain. Vitals normal and stable. DDx is broad, and includes, but is not limited to: kidney stone, uti, pyelo, ectopic . Will do ua, upreg, cbc, cmp, lipase. Choice of initial imaging will be determined by status. 08/01/18 00:24 CBC normal. CMP reassuring. Lipase normal UA clear. Upreg+. TVUS shows 6w6d IUP, no acute pathology. RUQ us shows no hydronephrosis, normal gallbladder. Patient now has nontender abdominal exam. At this time, do not suspect appendicitis, ectopic, cholecystitis, uti, hepatobiliary disease,acute urinary obstruction 2/2 kidney stones. Do not have cause of abdominal pain. Patient has OB follow up, given strict return precautions. *DC/Admit/Observation/Transfer Diagnosis at time of Disposition: Abdominal pain - Discharge Dispostion Disposition: HOME Condition at time of disposition: Good Decision to Admit order: No - Referrals Referrals: ON STAFF,NOT [Primary Care Provider] - - Patient Instructions Printed Discharge Instructions: DI for Abdominal Pain -- Early Additional Instructions: Please follow up with your OBGYN this week. Please return if you have any new, worsening or concerning symptoms, especially fever, vomiting and increasing pain. - Post Discharge Activity
[2018-07-31] MEDS ORDERED: morphine SULFATE 4 MG/ML VIAL ONE (19:56)
[2018-07-31] MEDS ORDERED: ONDANSETRON 4 MG/2 ML VIAL ONE (19:57)
[2018-07-31 20:06] LABS: HCG,QUALITATIVE URINE Positive
[2018-07-31 20:25] LABS: BASO % 0.6 % (0-2.0); EOS % 0.9 % (0-4.5); HEMATOCRIT 35.9 % (32.4-45.2); HEMOGLOBIN 13.1 GM/dL (10.7-15.3); LYMPH % 35.6 % (8-40); MCH 31.3 pg (25.7-33.7); MCHC 36.6 g/dl (32.0-36.0); MEAN CELL VOLUME 85.5 fl (80-96); MEAN PLT VOLUME 9.8 fl (7.5-11.1); MONO % 8.6 % (3.8-10.2); NEUT % 54.3 % (42.8-82.8); PLATELET COUNT 282 K/MM3 (134-434); RDW 14.3 % (11.6-15.6); WHITE BLOOD COUNT 6.6 K/mm3 (4.0-10.0)
[2018-07-31 21:11] LABS: ALBUMIN 3.6 g/dl (3.4-5.0); ALK PHOS 68 U/L (45-117); ANION GAP 7 MMOL/L (8-16); BILIRUBIN,TOTAL 0.3 mg/dL (0.2-1); BLOOD UREA NITROGEN 10 mg/dL (7-18); CALCIUM 9.2 mg/dL (8.5-10.1); CHLORIDE 107 mmol/L (98-107); CO2 27 mmol/L (21-32); CREATININE 0.8 mg/dL (0.55-1.3); GLUCOSE,RANDOM 123 mg/dL (74-106); LIPASE 148 U/L (73-393); POTASSIUM 3.7 mmol/L (3.5-5.1); SGOT/AST 12 U/L (15-37); SGPT/ALT 22 U/L (13-61); SODIUM 141 mmol/L (136-145); TOT PROT 7.5 g/dl (6.4-8.2)
== END 2018-08-01 00:59 | disposition home or self-care (01) ==
LOC: JER 18:46
DX: O26.891 Other specified pregnancy related conditions, first trimester (principal); R10.30 Lower abdominal pain, unspecified; Z3A.01 Less than 8 weeks gestation of pregnancy; Z86.32 Personal history of gestational diabetes
CPT/HCPCS: 36415; 76705-TC; 76817-TC; 80053; 81003; 83690; 84702; 84703; 85025; 87086; 99283-25; J7030

== ENCOUNTER 2022-10-15 17:44 | Observation (INO) | payer OTHER ==
[2022-10-15 18:00] VITALS: BMI 35.5
[2022-10-15] MEDS ORDERED: ACETAMINOPHEN 325 MG TABLET (FP) PO ONE (18:45)
[2022-10-15] MEDS ORDERED: ACETAMINOPHEN 325 MG TABLET (FP) ONE (18:54)
[2022-10-15 19:08] LABS: EOS % 2.3 % (0-4.5); HEMATOCRIT 36.9 % (32.4-45.2); HEMOGLOBIN 12.6 GM/dL (10.7-15.3); LYMPH % 37.9 % (8-40); MCH 28.7 pg (25.7-33.7); MCHC 34.2 g/dl (32.0-36.0); MEAN PLT VOLUME 9.5 fl (7.5-11.1); MONO % 14.6 % (3.8-10.2); NEUT % 44.2 % (42.8-82.8); PLATELET COUNT 329 10^3/uL (134-434); WHITE BLOOD COUNT 5.2 K/mm3 (4.0-10.0)
[2022-10-15 19:26] LABS: POTASSIUM 4.1 mmol/L (3.5-5.1)
[2022-10-15 19:29] LABS: CALCIUM 9.5 mg/dL (8.5-10.1)
[2022-10-15 19:30] LABS: ALBUMIN 3.5 g/dl (3.4-5.0); BLOOD UREA NITROGEN 9.5 mg/dL (7-18); MAGNESIUM 2.3 mg/dL (1.8-2.4)
[2022-10-15 19:33] LABS: CREATININE 0.8 mg/dL (0.55-1.3)
[2022-10-15 19:34] LABS: TOT PROT 7.2 g/dl (6.4-8.2)
[2022-10-15 19:35] LABS: BILIRUBIN,TOTAL 0.5 mg/dL (0.2-1)
[2022-10-15 19:52] LABS: ERYTHROCYTE SEDIMENTATION RATE 28 mm/hr (0-20)
[2022-10-15] MEDS ORDERED: ACETAMINOPHEN 325 MG TABLET (FP) PO PRN (21:49)
[2022-10-15] MEDS ORDERED: LISINOPRIL 5 MG TABLET PO SCH (22:00)
[2022-10-16 07:42] LABS: BASO % 0.9 % (0-2.0); EOS % 3.4 % (0-4.5); HEMATOCRIT 36.1 % (32.4-45.2); HEMOGLOBIN 12.7 GM/dL (10.7-15.3); LYMPH % 47.4 % (8-40); MCH 29.1 pg (25.7-33.7); MCHC 35.1 g/dl (32.0-36.0); MEAN PLT VOLUME 10.4 fl (7.5-11.1); NEUT % 35.3 % (42.8-82.8); PLATELET COUNT 299 10^3/uL (134-434); RBC 4.35 M/mm3 (3.60-5.2); RDW 13.8 % (11.6-15.6); WHITE BLOOD COUNT 4.1 K/mm3 (4.0-10.0)
[2022-10-16 08:01] LABS: POTASSIUM 3.9 mmol/L (3.5-5.1)
[2022-10-16 08:15] LABS: CALCIUM 9.6 mg/dL (8.5-10.1)
[2022-10-16 08:17] LABS: ALBUMIN 3.4 g/dl (3.4-5.0); BLOOD UREA NITROGEN 9.5 mg/dL (7-18); MAGNESIUM 2.1 mg/dL (1.8-2.4)
[2022-10-16 08:21] LABS: CREATININE 0.8 mg/dL (0.55-1.3); PHOSPHOROUS 3.9 mg/dL (2.5-4.9)
[2022-10-16 08:22] LABS: BILIRUBIN,TOTAL 0.8 mg/dL (0.2-1); TOT PROT 6.9 g/dl (6.4-8.2)
[2022-10-16] MEDS ORDERED: ENOXAPARIN NA (PORCINE) 40 MG/0.4 ML DISP.SYRIN SQ SCH (10:00)
[2022-10-16] MEDS ORDERED: HYDROCHLOROTHIAZIDE 12.5 MG CAPSULE (FP) PO SCH (10:00)
[2022-10-16 14:32] VITALS: TEMP 98.8
[2022-10-16 14:33] VITALS: BP 124/85; PULSE 88; RESP 20
== END 2022-10-16 17:15 | disposition home or self-care (01) ==
LOC: JER 17:44 → JERBED 20:26 → J4W 10-16 00:47
PROVIDERS: ADMIT Internal Medicine; ATTEND Internal Medicine
PROC: 3E023GC Introduction of Other Therapeutic Substance into Muscle, Percutaneous Approach (ICD-10-PCS; principal; 2022-10-15)
DX: R07.9 Chest pain, unspecified (principal); I44.7 Left bundle-branch block, unspecified; E66.01 Morbid (severe) obesity due to excess calories; Z68.35 Body mass index [BMI] 35.0-35.9, adult; J45.909 Unspecified asthma, uncomplicated; I10 Essential (primary) hypertension
CPT/HCPCS: 0241U-QW; 36415; 71046-TC-FY; 80053; 80061; 83036; 83735; 84100; 84439; 84443; 84484; 85025; 85651; 86140; 87651; 93005; 93010; 93306-TC; 93308; 96372; 99285-25; G0378